=== PATIENT | female | born 1970 | race Caucasian/White ===

== ENCOUNTER 2018-10-08 14:54 | Emergency (ER) | payer OTHER ==
[2018-10-08 15:07] VITALS: TEMP 98.3
--- NOTE | 2018-10-08 15:39 | ED ---
General Adult HPI - General Chief complaint: Abdominal Pain Stated complaint: Possible hernia Time Seen by Provider: 10/08/18 15:11 Source: patient, RN notes reviewed Mode of arrival: ambulatory Limitations: no limitations - History of Present Illness Initial comments: Patient 48-year-old female presenting to the emergency room today with a chief complaint of a "bulge" to the right side of the abdomen. She does admit that approximately a week ago she went to crop picker her dog which was laying on the bed and she felt tearing sensation to the right side of the abdomen. She states that over the past week she's noticed that she's had some pressure to the right side in his noticed that with certain movements she is felt that abdomen is bulging out seizure. She does admit that she is concerned that she has a hernia. Vision states that the pain is minimal at this time. She states that it does reduce it. She states she feels both bulge next 2 The umbilicus along with in the lower part of the abdomen on the right side. Patient denies any other complaints or symptoms. Patient denies any recent fever, chills, shortness of breath, chest pain, back pain, abdominal pain, nausea or vomiting, numbness or tingling, dysuria or hematuria, constipation or diarrhea, headaches or visual changes, or any other complaints. - Related Data Home Medications Medication Instructions Recorded Confirmed Docusate [Colace] 100 mg PO ONCE 10/08/18 10/08/18 Fluticasone Nasal [place] [Flonase 1 spray EA NOSTRIL DAILY 10/08/18 10/08/18 Nasal [place]] Loratadine [Claritin] 10 mg PO DAILY 10/08/18 10/08/18 Allergies Allergy/AdvReac Type Severity Reaction Status Date / Time wheat Allergy Anaphylaxis Verified 10/08/18 15:18 Review of Systems ROS Statement: Those systems with pertinent positive or pertinent negative responses have been documented in the HPI. ROS Other: All systems not noted in ROS Statement are negative. Past Medical History Past Medical History: No Reported History History of Any Multi-Drug Resistant Organisms: None Reported Past Surgical History: Section Additional Past Surgical History / Comment(s): Throat Past Psychological History: No Psychological Hx Reported Smoking Status: Current every day smoker Past Alcohol Use History: None Reported Past Drug Use History: None Reported General Exam - General Exam Comments Initial Comments: General: The patient is awake and alert, in no distress, and does not appear acutely ill. Neck: The neck is supple, there is no tenderness or JVD. Cardiovascular: There is a regular rate and rhythm. No murmur, rub or gallop is appreciated. Musculoskeletal: Normal ROM, no tenderness. Strength 5/5. Neurological: A&O x 3. CN II-XII intact, There are no obvious motor or sensory deficits. Coordination appears grossly intact. Speech is normal. Skin: Skin is warm and dry and no rashes or lesions are noted. Psychiatric: Cooperative, appropriate mood & affect, normal judgment. Limitations: no limitations Course Vital Signs 10/08/18 15:03 Temperature 98.3 F Pulse Rate 117 H Respiratory 20 Rate Blood Pressure 186/97 O2 Sat by Pulse 99 Oximetry Medical Decision Making - Medical Decision Making Options were discussed with patient about further workup. The emergency room with blood work and imaging. Patient does admit that the hernia is reduced on the wrong. Was discussed about following up with surgeon. She is agreeable to this. She is advised that his do not reduced and there is increased pain she should return here to the emergency room. Patient states understanding and is in agreement. Disposition Clinical Impression: Abdominal pain Disposition: HOME SELF-CARE Condition: Good Instructions (If sedation given, give patient instructions): Abdominal Pain (ED) Additional Instructions: Please use medication as discussed. Please follow-up with general surgeon in the next 2 days of symptoms have not improved. Please return to emergency room if the symptoms increase or worsen or for any other concerns. Is patient prescribed a controlled substance at d/c from ED?: No Referrals: Satish Hammond MD [Primary Care Provider] - 1-2 days Time of Disposition: 15:38
[2018-10-08 15:42] VITALS: BP 169/107; PULSE 93; RESP 18
== END 2018-10-08 16:07 | disposition home or self-care (01) ==
LOC: EC 14:54
DX: R10.9 Unspecified abdominal pain (principal); F17.200 Nicotine dependence, unspecified, uncomplicated; Z79.899 Other long term (current) drug therapy; Z91.018 Allergy to other foods
CPT/HCPCS: 99283

== ENCOUNTER → 2018-11-29 | Outpatient (CLI) | payer OTHER ==
--- NOTE | 2018-11-30 13:55 | US ---
EXAMINATION TYPE: US pelvic complete DATE OF EXAM: 11/29/2018 COMPARISON: NONE CLINICAL HISTORY: pelvic mass R19.00. TECHNIQUE: Transabdominal (TA). Patient refused TV today due to still being on cycle. Date of LMP: 11/26/2018 EXAM MEASUREMENTS: Uterus: 15.7 x 10.6 x 10.7 cm Endometrial Stripe: 1.3 cm Right Ovary: 3.9 x 2.7 x 2.9 cm Left Ovary: 3.1 x 2.2 x 2.4 cm 1. Uterus: Anteverted Large complex cystic mass posterior fundal region measures 8.1 x 6.8 x 9.9 c m. 2. Endometrium: wnl 3. Right Ovary: cyst measures 2.4 x 1.9 x 2.3 cm 4. Left Ovary: wnl 5. Bilateral Adnexa: wnl 6. Posterior cul-de-sac: no free fluid IMPRESSION: There is a 9.9 cm complex intramural uterine fundal mass that does not appear as a typica l leiomyoma. Primary uterine carcinoma is suspected and gynecologic/oncologic consultation is recomme nded.
== END | disposition home or self-care (01) ==
LOC: RADUSWWP 15:56
PROVIDERS: ATTEND Family Medicine
DX: R19.00 Intra-abdominal and pelvic swelling, mass and lump, unspecified site (principal); Z91.018 Allergy to other foods
CPT/HCPCS: 76856

== ENCOUNTER 2019-05-15 15:30 | Emergency (ER) | payer OTHER ==
[2019-05-15 15:34] VITALS: RESP 20; TEMP 97.9
[2019-05-15] MEDS: SODIUM CHLORIDE 0.9% 1,000 ML IV ONE (16:07)
--- NOTE | 2019-05-15 16:13 | ED ---
Abdominal Pain HPI - General Chief Complaint: Abdominal Pain Stated Complaint: hysterectomy incision pain Time Seen by Provider: 05/15/19 15:41 Source: patient, RN notes reviewed Mode of arrival: ambulatory Limitations: no limitations - History of Present Illness Initial Comments: 49-year-old female presents emergency Department chief complaint lower abdominal pain. She's had increasing lower abdominal pain last 3 days. She states that she recently started on Bactrim work after having a hysterectomy in January. Patient states that she's having severe intermittent stabbing pain in her lower abdomen. She denies any dysuria hematuria no diarrhea no constipation or fevers chills. Patient states that this pain just feels unusual and she states she had no pain prior to this. Patient offers no other complaints at this time. - Related Data Home Medications Medication Instructions Recorded Confirmed Docusate [Colace] 100 mg PO ONCE 10/08/18 10/08/18 Fluticasone Nasal [place] [Flonase 1 spray EA NOSTRIL DAILY 10/08/18 10/08/18 Nasal [place]] Loratadine [Claritin] 10 mg PO DAILY 10/08/18 10/08/18 Allergies Allergy/AdvReac Type Severity Reaction Status Date / Time wheat Allergy Anaphylaxis Verified 05/15/19 15:34 Review of Systems ROS Statement: Those systems with pertinent positive or pertinent negative responses have been documented in the HPI. ROS Other: All systems not noted in ROS Statement are negative. Past Medical History Past Medical History: Hypertension History of Any Multi-Drug Resistant Organisms: None Reported Past Surgical History: Section, Hysterectomy Additional Past Surgical History / Comment(s): Throat Past Psychological History: No Psychological Hx Reported Smoking Status: Current every day smoker Past Alcohol Use History: None Reported Past Drug Use History: None Reported General Exam Limitations: no limitations General appearance: alert, in no apparent distress Head exam: Present: atraumatic, normocephalic, normal inspection Eye exam: Present: normal appearance, PERRL, EOMI. Absent: scleral icterus, conjunctival injection, periorbital swelling Respiratory exam: Present: normal lung sounds bilaterally. Absent: respiratory distress, wheezes, rales, rhonchi, stridor Cardiovascular Exam: Present: regular rate, normal rhythm, normal heart sounds. Absent: systolic murmur, diastolic murmur, rubs, gallop, clicks GI/Abdominal exam: Present: soft, tenderness (Moderate lower abdominal tenderness), normal bowel sounds. Absent: distended, guarding, rebound, rigid Back exam: Absent: CVA tenderness (R), CVA tenderness (L) Neurological exam: Present: alert, oriented X3 Skin exam: Present: warm, dry, intact, normal color. Absent: rash Course Vital Signs 05/15/19 05/15/19 05/15/19 15:31 15:34 16:34 Temperature 97.9 F Pulse Rate 81 81 78 Respiratory 20 20 20 Rate Blood Pressure 171/98 O2 Sat by Pulse 98 98 98 Oximetry 05/15/19 17:09 Temperature Pulse Rate 78 Respiratory 20 Rate Blood Pressure 150/96 O2 Sat by Pulse 98 Oximetry Medical Decision Making - Medical Decision Making Labs CT and urinalysis unremarkable. Patient's pain is most likely related to her surgical incision from adhesions or scar tissue. Patient will be discharged advised follow-up with her PCP and return for any worsening symptoms. - Lab Data Result diagrams: 05/15/19 16:05 05/15/19 16:05 Lab Results 05/15/19 05/15/19 Range/Units 16:05 16:05 WBC 7.3 (3.8-10.6) k/uL RBC 4.82 (3.80-5.40) m/uL Hgb 14.4 (11.4-16.0) gm/dL Hct 43.5 (34.0-46.0) % MCV 90.3 (80.0-100.0) fL MCH 29.9 (25.0-35.0) pg MCHC 33.2 (31.0-37.0) g/dL RDW 14.8 (11.5-15.5) % Plt Count 227 (150-450) k/uL Neutrophils % 57 % Lymphocytes % 35 % Monocytes % 3 % Eosinophils % 3 % Basophils % 1 % Neutrophils # 4.2 (1.3-7.7) k/uL Lymphocytes # 2.5 (1.0-4.8) k/uL Monocytes # 0.2 (0-1.0) k/uL Eosinophils # 0.2 (0-0.7) k/uL Basophils # 0.0 (0-0.2) k/uL Sodium 143 (137-145) mmol/L Potassium 3.9 (3.5-5.1) mmol/L Chloride 109 H (98-107) mmol/L Carbon Dioxide 23 (22-30) mmol/L Anion Gap 11 mmol/L BUN 10 (7-17) mg/dL Creatinine 0.77 (0.52-1.04) mg/dL Est GFR (CKD-EPI)AfAm >90 (>60 ml/min/1.73 sqM) Est GFR (CKD-EPI)NonAf >90 (>60 ml/min/1.73 sqM) Glucose 75 (74-99) mg/dL Calcium 10.2 (8.4-10.2) mg/dL Total Bilirubin 1.3 (0.2-1.3) mg/dL AST 57 H (14-36) U/L ALT 36 H (4-34) U/L Alkaline Phosphatase 89 (38-126) U/L Total Protein 9.6 H (6.3-8.2) g/dL Albumin 5.8 H (3.5-5.0) g/dL Lipase 315 H (23-300) U/L Disposition Clinical Impression: Abdominal pain, Pain at surgical incision Disposition: HOME SELF-CARE Condition: Stable Instructions (If sedation given, give patient instructions): Abdominal Pain (ED) Additional Instructions: Please return to the Emergency Department if symptoms worsen or any other concerns. Is patient prescribed a controlled substance at d/c from ED?: No Referrals: Satish Hammond MD [Primary Care Provider] - 1-2 days
[2019-05-15 16:15] LABS: Basophils % (A) 1 %; Eosinophils # (A) 0.2 k/uL (0-0.7); Eosinophils % (A) 3 %; HCT 43.5 % (34.0-46.0); HGB 14.4 gm/dL (11.4-16.0); Lymphocytes # (A) 2.5 k/uL (1.0-4.8); Lymphocytes % (A) 35 %; MCH 29.9 pg (25.0-35.0); MCHC 33.2 g/dL (31.0-37.0); MCV 90.3 fL (80.0-100.0); Mean Platelet Volume 8.6; Monocytes # (A) 0.2 k/uL (0-1.0); Monocytes % (A) 3 %; Neutrophils # (A) 4.2 k/uL (1.3-7.7); Neutrophils % (A) 57 %; Platelet Count 227 k/uL (150-450); RBC 4.82 m/uL (3.80-5.40); RDW 14.8 % (11.5-15.5); WBC 7.3 k/uL (3.8-10.6)
[2019-05-15 16:27] LABS: ALT 36 U/L (4-34); AST 57 U/L (14-36); African American GFR (CKD) >90 (>60 ml/min/1.73 sqM); Albumin 5.8 g/dL (3.5-5.0); Alkaline Phosphatase 89 U/L (38-126); Anion Gap 11 mmol/L; Blood Urea Nitrogen 10 mg/dL (7-17); Calcium 10.2 mg/dL (8.4-10.2); Carbon Dioxide 23 mmol/L (22-30); Glucose 75 mg/dL (74-99); Non-African American GFR(CKD) >90 (>60 ml/min/1.73 sqM); Sodium 143 mmol/L (137-145); Total Bilirubin 1.3 mg/dL (0.2-1.3); Total Protein 9.6 g/dL (6.3-8.2)
[2019-05-15 16:29] LABS: Chloride 109 mmol/L (98-107); Potassium 3.9 mmol/L (3.5-5.1)
[2019-05-15 17:05] VITALS: PULSE 78
--- NOTE | 2019-05-15 17:18 | CT ---
EXAMINATION TYPE: CT abdomen pelvis w con DATE OF EXAM: 05/15/2019 COMPARISON: HISTORY: Pain and burning around hysterectomy incision site. Hysterectomy 01-20-19. CT DLP: 698.6 mGycm Automated exposure control for dose reduction was used. CONTRAST: Performed with IV Contrast, patient injected with 100 mL of Isovue 300. Lung bases are clear. There is no pleural effusion. Heart size is normal. There is no pericardial eff usion. The liver spleen pancreas gallbladder appear normal. Bile ducts are not dilated. There is no adrenal mass. Kidneys show satisfactory contrast opacification. There is no hydronephrosi s. There is no retroperitoneal adenopathy. Bladder distends smoothly. There is no inguinal hernia. Th ere is no free fluid in the pelvis. There is hysterectomy. There is mild subcutaneous density over th e lower anterior abdomen consistent with recent surgery and incision site. There is no discrete fluid collection. There is no mesenteric edema. There is no ascites or free air. There is no sign of a bowel obstructio n. The appendix appears normal. There is L5 spondylolysis with first-degree minimal L5-S1 spondylolisthesis. There is no compression fracture. Bony pelvis is intact. IMPRESSION: Hysterectomy incision. No pathologic fluid collection. No free air. No complicating process seen. L5 spondylolysis with mild first-degree L5-S1 spondylolisthesis.
[2019-05-15 17:55] LABS: Appearance,Urine Clear (Clear); Bilirubin,Urine Negative (Negative); Blood,Urine Negative (Negative); Color,Urine Light Yellow; Glucose,Urine (UA) Negative (Negative); Ketones,Urine Negative (Negative); Leukocyte Esterase,Urine Small (Negative); Mucus,Urine Rare /hpf; Nitrite,Urine Negative (Negative); PH, Urine 6.5 (5.0-8.0); Protein,Urine Negative (Negative); RBC,Urine 2 /hpf (0-5); Specific Gravity,Urine 1.045 (1.001-1.035); Squamous Epithelial Cell,Urine 2 /hpf (0-4); Urobilinogen,Urine <2.0 mg/dL (<2.0)
[2019-05-15 18:22] VITALS: BP 135/85
== END 2019-05-15 18:26 | disposition home or self-care (01) ==
LOC: EC 15:30
DX: G89.18 Other acute postprocedural pain (principal); R10.30 Lower abdominal pain, unspecified; F17.200 Nicotine dependence, unspecified, uncomplicated; Z91.018 Allergy to other foods; Z90.710 Acquired absence of both cervix and uterus
CPT/HCPCS: 36415; 80053; 83690; 85025; 81001; 74177; 99284; 96360; Q9967

== ENCOUNTER → 2024-09-01 | Outpatient (CLI) | payer OTHER ==
--- NOTE | 2024-09-01 14:56 | US ---
EXAMINATION TYPE: US kidneys/renal and bladder DATE OF EXAM: 09/01/2024 COMPARISON: CT CLINICAL INDICATION: Female, 54 years old with history of R31.9 HEMATURIA Z12.31 SCREENING; Pt states microscopic hematuria TECHNIQUE: Grayscale imaging of the bilateral kidneys and urinary bladder: FINDINGS: EXAM MEASUREMENTS: Right Kidney: 11.1 x 4.8 x 4.5 cm Left Kidney: 10.5 x 5.8 x 4.8 cm Right Kidney: No hydronephrosis or masses seen Left Kidney: No hydronephrosis or masses seen, lower pole gassed out Bladder: wnl Bilateral Jets seen: No There is no evidence for hydronephrosis at this point in time. No nephrolithiasis is seen. No crispin s are identified. The urinary bladder is anechoic. IMPRESSION: No evidence for obstructive uropathy or renal calculus. [facility], , 09/01/2024 2:54 PM
== END | disposition home or self-care (01) ==
LOC: RADUSWWP 14:24
PROVIDERS: ATTEND Family Medicine
DX: R31.29 Other microscopic hematuria (principal)
CPT/HCPCS: 76770

== ENCOUNTER 2024-10-13 09:53 | Day surgery (SDC) | payer MEDICARE, OTHER ==
[2024-10-13 10:32] VITALS: RESP 16; TEMP 97.9
[2024-10-13] MEDS: IV FLUID CONTINUATION 1,000 ML IV ONE (10:34)
[2024-10-13] MEDS: LACTATED RINGERS 1,000 ML IV SCH (10:35)
[2024-10-13] MEDS: LIDOCAINE 1% (10MG/ML) FOR IV START INTRADERMA PRN (10:35)
[2024-10-13] MEDS ORDERED: PROPOFOL 10 MG/ML 20 ML VIAL IV ONE (10:48)
[2024-10-13 11:22] VITALS: BP 105/70; PULSE 67
--- NOTE | 2024-10-13 14:55 | P.OP ---
Date of Procedure: 10/13/24 Preoperative Diagnosis: Screening Colonoscopy Postoperative Diagnosis: 1. Diverticulosis 2. Diminutive Polyp of Sigmoid Colon Procedure(s) Performed: Colonoscopy Anesthesia: MAC Surgeon: Chucho Owens Pathology: none sent Condition: stable Disposition: PACU Description of Procedure: After informed consent was obtained, the patient was placed in the left lateral position and the patient was sedated. Monitoring was provided throughout the entire procedure. Digital rectal exam was performed revealing normal sphincter tone and no external hemorrhoids. The colonoscope was inserted into rectum and advanced under direct visualization, without difficulty, to the cecum, where the cecal strap, appendiceal orifice, and the ileocecal valve were identified. The quality of the preparation was good. The colonoscope was then withdrawn while carefully examining the mucosa. The colonic mucosa appeared normal with normal vascularity and haustral markings. No masses or AVM/s were seen. There was a small diminutive sessile polyp in sigmoid colon. There was diverticulosis noted in the sigmoid colon. The endoscope was removed and the procedure terminated. The patient tolerated the procedure well without complications. Repeat Colonoscopy in 2-3 years
== END 2024-10-13 11:37 | disposition home or self-care (01) ==
LOC: ORWHC2ENDO 09:53
PROVIDERS: ATTEND Surgery
DX: Z12.11 Encounter for screening for malignant neoplasm of colon (principal); K63.5 Polyp of colon; K57.30 Diverticulosis of large intestine without perforation or abscess without bleeding; R19.5 Other fecal abnormalities; I10 Essential (primary) hypertension; K21.9 Gastro-esophageal reflux disease without esophagitis; F17.200 Nicotine dependence, unspecified, uncomplicated; Z79.899 Other long term (current) drug therapy; Z91.018 Allergy to other foods
CPT/HCPCS: 45378; J2704